=== PATIENT | female | born 1960 | race Caucasian/White ===

== ENCOUNTER 2016-10-05 18:15 | Emergency (ER) | payer MEDICARE ==
[2016-10-05] MEDS ORDERED: DELTASONE 20 MG PO ONE (18:45)
[2016-10-05] MEDS ORDERED: PROVENTIL 2.5 MG/3 ML NEB IH ONE ×2 (18:45→19:07)
[2016-10-05] MEDS ORDERED: Vibramycin 100 MG PO ONE (18:46)
--- NOTE | 2016-10-05 18:52 | ERPHSYRPT ---
- History of Present Illness Time Seen by Provider: 10/05/16 18:40 Source: patient, family Patient Subjective Stated Complaint: congestion with green sputum for 3 weeks Triage Nursing Assessment: productive cough with green sputum for 3 weeks. denies nasal drainage. no fever. lungs clear Physician History: CC: 56 y/o patient of Dr Miguel Oconnor and Sanjeev who is a chronic smoker. She lives with [facility] and he has been ill with URI and in the hospital. She has been ill with cough for 3 weeks. No fever. HAd sore throat which is now better. Feels short of breath when coughing. Saw Dr Oconnor and had cxr last week. No steroids, abtx, or bronchodilators. Symptoms moderate. Timing/Duration: week(s) (3) Allergies/Adverse Reactions: pregabalin [From Lyrica] Allergy (Verified 10/05/16 18:25) propoxyphene HCl [From Darvon] Allergy (Verified 10/05/16 18:25) Home Medications: Lisinopril 20 mg [Zestril 20 MG] 20 mg PO DAILY 12/01/12 [History] Levothyroxine Sodium 175 Mcg [Synthroid 175 MCG] 175 mcg PO DAILY 12/02/12 [ History] Pantoprazole Sodium [Protonix] 40 mg PO DAILY 10/29/14 [History] Clonidine HCl 0.1 mg [Catapres 0.1 MG] 0.1 mg PO TID 10/05/16 [History] Levomilnacipran Hydrochloride [Fetzima] 120 mg PO DAILY 10/05/16 [History] Magnesium Oxide 400 mg [Mag-Ox 400] 400 mg PO DAILY 10/05/16 [History] Solifenacin Succinate [Vesicare] 10 mg PO DAILY 10/05/16 [History] Tizanidine HCl 4 mg [Zanaflex 4 MG] 4 mg PO UD 10/05/16 [History] Hx Tetanus, Diphtheria Vaccination/Date Given: Yes Hx Influenza Vaccination/Date Given: No Hx Pneumococcal Vaccination/Date Given: No Immunizations Up to Date: Yes - Review of Systems Constitutional: Fatigue, Malaise, Weakness, No Fever, No Chills Eyes: No Symptoms Ears, Nose, & Throat: Throat Pain Respiratory: Cough, Dyspnea Abdominal/Gastrointestinal: No Nausea, No Vomiting, No Diarrhea Skin: No Rash Neurological: No Headache All Other Systems: Reviewed and Negative - Past Medical History Pertinent Past Medical History: Yes Neurological History: Migraines ENT History: No Pertinent History Cardiac History: Hypertension Respiratory History: COPD Endocrine Medical History: Hypothyroidism Musculoskeletal History: Arthritis, Fibromyalgia, Rheumatoid Arthritis GI Medical History: GERD, Irritable Bowel, Pancreatitis, Ulcer History: No Pertinent History Psycho-Social History: Anxiety, Bipolar, Depression, Panic Disorder, Other Female Reproductive Disorders: No Pertinent History - Past Surgical History Past Surgical History: Yes Neuro Surgical History: No Pertinent History Cardiac: No Pertinent History Respiratory: No Pertinent History Gastrointestinal: No Pertinent History Genitourinary: No Pertinent History Musculoskeletal: Orthopedic Surgery, Other Female Surgical History: Section, Lumpectomy, Tubal Ligation - Social History Smoking Status: Current every day smoker How long have you smoked: 33 YEARS Exposure to second hand smoke: No Drug Use: none Patient Lives Alone: No - Female History Hx Now: No - Nursing Vital Signs Nursing Vital Signs: Initial Vital Signs Temperature 98.3 F Temperature Source Oral Pulse Rate 94 Respiratory Rate 18 Blood Pressure [Right Arm] 145/105 - Physical Exam General Appearance: alert Eye Exam: PERRL/EOMI Ears, Nose, Throat Exam: dry mucous membranes Neck Exam: normal inspection, non-tender, supple Respiratory Exam: normal breath sounds, diminished breath sounds, No wheezing Cardiovascular Exam: regular rate/rhythm Gastrointestinal/Abdomen Exam: soft, No tenderness, No distention Extremity Exam: normal inspection, normal range of motion Neurologic Exam: alert, oriented x 3, cooperative, sensation nml, No motor deficits Skin Exam: warm, dry, No rash SpO2 Interpretation: normal SpO2: 99 Oxygen Delivery: Room Air - Course Nursing assessment & vital signs reviewed: Yes Ordered Tests: Active Orders 24 hr Category Date Time Status Accucheck STAT Care 10/05/16 18:45 Active Respiratory Nebulizer STAT RT 10/05/16 18:45 Active Medication Summary Generic Name Dose Route Start Last Admin Trade Name Freq PRN Reason Stop Dose Admin Albuterol Sulfate 2.5 mg 10/05/16 18:45 Proventil 2.5 Mg/3 Ml Neb IH 10/05/16 18:46 STAT ONE Doxycycline Hyclate 100 mg 10/05/16 18:46 Vibramycin 100 Mg PO 10/05/16 18:47 STAT ONE Prednisone 40 mg 10/05/16 18:45 Deltasone 20 Mg PO 10/05/16 18:46 STAT ONE - Progress Progress Note: 10/05/16 18:49 Advised smoking cessation. Rx albuterol, prednisone, doxycycline. She will follow up with Dr Miguel Oconnor. Counseled pt/family regarding: diagnosis, need for follow-up - Departure Time of Disposition: 18:50 Departure Disposition: Home Clinical Impression: Smoker Acute bronchitis Qualifiers: Bronchitis organism: unspecified organism Qualified Code(s): J20.9 - Acute bronchitis, unspecified Condition: Stable Critical Care Time: No Referrals: ESEQUIEL MORENO [Primary Care Provider] - TRUDY OCONNOR [CONSULTING PHYSICIAN] - Instructions: Cough -- Adult, Bronchitis Additional Instructions: Rx doxycycline. Rx albuterol MDI. Rx prednisone. Stop smoking. Drink plenty of water and fluids. Follow up with Dr Miguel Oconnor next week. Prescriptions: Albuterol Sulfate [Albuterol Sulfate Hfa] 2 puff IH [id number] PRN #1 [id number] PRN Reason: cough or wheeze Doxycycline Hyclate 100 mg [Vibramycin 100 MG] 1 tab PO BID #20 tab Prednisone 20 mg [Deltasone 20 mg] 2 tab PO DAILY #10 tablet
[2016-10-05] MEDS ORDERED: ATARAX 25 MG PO ONE (18:54)
[2016-10-05] MEDS ORDERED: ATARAX 25 MG ONE (18:57)
[2016-10-05] MEDS ORDERED: DELTASONE 20 MG ONE (18:58)
[2016-10-05] MEDS ORDERED: Vibramycin 100 MG ONE (18:58)
[2016-10-05 19:27] VITALS: BP 165/104; PULSE 86; O2SAT 99
== END 2016-10-05 19:36 | disposition home or self-care (01) ==
LOC: ED 18:15
DX: J20.9 Acute bronchitis, unspecified (principal); I10 Essential (primary) hypertension; E03.9 Hypothyroidism, unspecified; J44.9 Chronic obstructive pulmonary disease, unspecified; Z79.899 Other long term (current) drug therapy
CPT/HCPCS: 82962; 94640; 99283; A9270-GY; J7506